=== PATIENT | female | born 1940 | race Native Hawaiian/Other Pacific Islander ===

== ENCOUNTER 2016-08-04 14:11 | Observation (INO) | payer MEDICARE, OTHER ==
[2016-08-04] MEDS ORDERED: ONDANSETRON 4 MG/2 ML VIAL IVP STA (14:38)
[2016-08-04] MEDS ORDERED: MORPHINE 2 MG/ML SYRINGE IVP STA (14:38)
[2016-08-04] MEDS ORDERED: SODIUM CHLORIDE 0.9% 1,000 ML IV ONE (14:38)
[2016-08-04] MEDS ORDERED: ONDANSETRON 4 MG/2 ML VIAL ONE (14:40)
[2016-08-04] MEDS ORDERED: MORPHINE 2 MG/ML SYRINGE ONE (14:41)
[2016-08-04] MEDS ORDERED: diphenhydrAMINE INJ 50 MG/ML VIAL IVP STA (17:01)
[2016-08-04] MEDS ORDERED: METOCLOPRAMIDE 10 MG/2 ML VIAL IVP STA (17:01)
[2016-08-04] MEDS ORDERED: METOCLOPRAMIDE 10 MG/2 ML VIAL IVP ONE (17:10)
[2016-08-04] MEDS ORDERED: diphenhydrAMINE INJ 50 MG/ML VIAL ONE (17:10)
[2016-08-04] MEDS ORDERED: MECLIZINE 12.5 MG TABLET PO STA (17:55)
[2016-08-04] MEDS ORDERED: MECLIZINE 12.5 MG TABLET PO ONE (18:00)
[2016-08-04] MEDS ORDERED: ACETAMINOPHEN 325 MG TABLET PO PRN (19:17)
[2016-08-04] MEDS ORDERED: SODIUM CHLORIDE FLUSH 0.9% 10 ML SYRINGE IVP PRN (19:17)
[2016-08-04] MEDS ORDERED: ONDANSETRON ODT 4 MG TABLET TL PRN (19:17)
[2016-08-04] MEDS: SODIUM CHLORIDE FLUSH 0.9% 10 ML SYRINGE IVP SCH (21:36)
[2016-08-04] MEDS: SODIUM CHLORIDE 0.9% 1,000 ML IV SCH (21:36)
[2016-08-05] MEDS: SODIUM CHLORIDE 0.9% 1,000 ML IV SCH (03:52)
[2016-08-05] MEDS: SODIUM CHLORIDE FLUSH 0.9% 10 ML SYRINGE IVP SCH ×3 (05:24→21:42)
[2016-08-05] MEDS ORDERED: MECLIZINE 12.5 MG TABLET PO ONE ×2 (08:30→15:00)
[2016-08-05] MEDS: POLYETHYLENE GLYCOL 3350 17 GM PACKET PO SCH (08:31)
[2016-08-05] MEDS: ENOXAPARIN 40 MG/0.4 ML SYRINGE SUBQ SCH (08:31)
[2016-08-05] MEDS ORDERED: ALPRAZolam 0.25 MG TABLET PO SCH ×2 (11:00→20:00)
[2016-08-05] MEDS ORDERED: ALPRAZolam 0.25 MG TABLET PO ONE (11:15)
[2016-08-05] MEDS: OFLOXACIN 0.3% OPHTH DROPS EACHEAR SCH ×2 (13:46→21:09)
[2016-08-05] MEDS ORDERED: CIPROFLOX/DEXAMETH OTIC DROPS EACHEAR SCH (14:00)
[2016-08-05] MEDS ORDERED: METOCLOPRAMIDE 10 MG/2 ML VIAL IVP PRN (14:46)
[2016-08-05] MEDS ORDERED: methylPREDNISolone SUCCINATE 125 MG/2 ML VIAL IVP ONE (15:00)
[2016-08-05] MEDS ORDERED: ALPRAZolam 0.25 MG TABLET PO PRN (16:00)
[2016-08-05] MEDS ORDERED: traMADol 50 MG TABLET PO SCH (20:00)
[2016-08-05] MEDS ORDERED: diphenhydrAMINE INJ 50 MG/ML VIAL IVP SCH (20:00)
[2016-08-06] MEDS: SODIUM CHLORIDE FLUSH 0.9% 10 ML SYRINGE IVP SCH (05:21)
[2016-08-06] MEDS ORDERED: ASPIRIN CHEW 81 MG TABLET PO SCH (09:00)
[2016-08-06] MEDS: POLYETHYLENE GLYCOL 3350 17 GM PACKET PO SCH (09:03)
[2016-08-06] MEDS: ENOXAPARIN 40 MG/0.4 ML SYRINGE SUBQ SCH (09:03)
[2016-08-06] MEDS: OFLOXACIN 0.3% OPHTH DROPS EACHEAR SCH (09:11)
== END 2016-08-06 10:45 | disposition home or self-care (01) ==
DX: T16.2XXA Foreign body in left ear, initial encounter (principal); T16.1XXA Foreign body in right ear, initial encounter; Y84.8 Other medical procedures as the cause of abnormal reaction of the patient, or of later complication, without mention of misadventure at the time of the procedure; Y72.2 Prosthetic and other implants, materials and accessory otorhinolaryngological devices associated with adverse incidents; G43.909 Migraine, unspecified, not intractable, without status migrainosus; E86.0 Dehydration; E87.6 Hypokalemia; H66.93 Otitis media, unspecified, bilateral; H95.41 Postprocedural hemorrhage of ear and mastoid process following a procedure on the ear and mastoid process; H61.23 Impacted cerumen, bilateral; F41.9 Anxiety disorder, unspecified; I65.22 Occlusion and stenosis of left carotid artery; E78.5 Hyperlipidemia, unspecified
CPT/HCPCS: 36415; 70450; 70480; 70544; 70551; 80048; 80053; 80061; 81001; 82550; 83036; 83690; 83735; 84443; 84484; 85025; 85610; 85651; 86038; 86140; 86160; 86225; 86235; 86780; 87275; 87276; 93005; 93010; 93306; 96361; 96372; 96374; 96375; 97116; 97162; 99283; 99285; A9270; G0378; G0480; G8978; G8979; G8980; J1650